=== PATIENT | male | born 1975 | race Caucasian/White ===

== ENCOUNTER 2017-12-23 09:07 | Outpatient (CLI) | payer MEDICARE, MEDICAID ==
--- NOTE | 2017-12-23 10:19 | PRG ---
DATE OF SERVICE: 12/23/2017 CHIEF COMPLAINT: Ulcer, right foot. HISTORY OF PRESENT ILLNESS: A 42-year-old male who presents to clinic today with a wound to his righ t foot. This has been present for about a month. He was previously seen in my [facility]. We started him on Triple Antibiotic ointment and bandage changes. He has been doing this daily since I last saw him. He thinks the wound started as a blister. Before that time, there was no treatment be fore I saw about 3 weeks ago in my clinic. PAST MEDICAL HISTORY: Hypertension, diabetes and bipolar disorder. PAST SURGICAL HISTORY: Unremarkable. MEDICATIONS: See list in the paper chart. ALLERGIES: No known drug allergies. SOCIAL HISTORY: Relates he does not use tobacco, but is a former smoker. No alcohol use. Occasiona l caffeine use. No drug use. FAMILY HISTORY: Father with a history of heart disease, diabetes, and cancer. Mother with history o f heart disease and cancer. REVIEW OF SYSTEMS: CONSTITUTIONAL: Denies nausea, vomiting, fevers or chills. INTEGUMENTARY: Relates skin ulcers and cracking of the skin. MUSCULOSKELETAL: Relates weakness in the limbs. ENDOCRINE: Relates diabetes. CARDIOVASCULAR: Relates swelling in the legs and the ankles, hypertension and circulatory disease. PHYSICAL EXAMINATION: VITAL SIGNS: Temperature 97.8, pulse 78, respirations 22, blood pressure 125/78. VASCULAR EXAM: Dorsalis pedis pulses palpable bilaterally and posterior tibial pulses are nonpalpabl e bilaterally. Cap refill time is immediate to the distal aspect of all toes. No edema present to b ilateral lower extremities. No varicosities present to bilateral lower extremities. NEUROLOGICAL: 10 gram monofilament sense in 0 locations on bilateral feet. Negative Tinel sign on t he tibial nerve. Deep tendon reflexes are intact. Bilateral Achilles tendon, negative Babinski sign . MUSCULOSKELETAL: Muscle strength is 5/5 for dorsiflexion, plantar flexion, inversion, eversion in bi lateral lower extremities. The patient has rectus foot type. Range of motion of the ankle and subta lar joint, first MPJ is full with no pain, no crepitation. NEUROLOGICAL: Ulceration to the right plantar fourth metatarsal head measures 0.5 cm x 0.3 cm x 0.3 cm of depth, has 100% granular wound base. There is a periwound hyperkeratosis. No periwound erythe ma, edema, or warmth, no drainage. Wound does not probe to bone. ASSESSMENT: 1. Non-pressure chronic ulceration to the right forefoot. 2. Diabetes with peripheral neuropathy. PLAN: 1. Full thickness debridement of subcutaneous tissue layer removing all nonviable tissue and biofilm from the wound base as well as the hyperkeratotic tissue surrounding wound bases. This was done wit h a dermal curet and 15 blade scalpel. 2. The patient will start with Promogran dressing changes to the forefoot with dry gauze dressing, s econdary dressing daily. He will follow up with me in 1 week.
== END 2017-12-23 09:08 | disposition home or self-care (01) ==
LOC: WCC 09:07
PROVIDERS: ATTEND Podiatrist Foot & Ankle Surgery
DX: E11.621 Type 2 diabetes mellitus with foot ulcer (principal); L97.519 Non-pressure chronic ulcer of other part of right foot with unspecified severity; E11.42 Type 2 diabetes mellitus with diabetic polyneuropathy
CPT/HCPCS: 11042; 97139; G0463; 99203

== ENCOUNTER 2017-12-30 10:41 | Outpatient (CLI) | payer MEDICARE, MEDICAID ==
--- NOTE | 2017-12-30 11:42 | PRG ---
DATE OF SERVICE: 12/30/2017 SUBJECTIVE: This is a 42-year-old male returns today for followup right plantar fourth metatarsal he ad ulceration. He has had no problems over the last week with doing Promogran, Band-Aid and Coban dr essing changes. Denies nausea, vomiting, fevers or chills. PHYSICAL EXAMINATION: Ulceration to the plantar right fourth metatarsal head measures 0.3 cm x 0.3 c m x 0.2 cm of depth. It is 100% granular wound base. Minimal serosanguineous drainage, no odor. It does not probe to bone. Periwound area is dry and with minimal hyperkeratotic buildup. There was a loose flap of skin, which on removal noted there is a second wound also under the 4th just medial to the first wound, which measures 1.0 cm x 0.3 cm x 0.1 cm. It is also a 100% granular wound base. N o periwound erythema, edema or warmth. Does not probe to deeper tissues or bone. ASSESSMENT: 1. Non-pressure chronic ulcerations x2 to the right foot. 2. Diabetes with peripheral neuropathy. PLAN: 1. Full thickness debridement of both wounds down to a bleeding granular wound base, removing all no nviable tissue and biofilm from the subcutaneous tissue layer with a 15 blade and dermal curette. Th e patient tolerated the procedure well. 2. We are going to continue with Promogran dressing changes to both wound sites with gauze and Coban secondary dressing. 3. The patient will follow up with me in 1 week.
== END 2017-12-30 10:42 | disposition home or self-care (01) ==
LOC: WCC 10:41
PROVIDERS: ATTEND Podiatrist Foot & Ankle Surgery
DX: E11.621 Type 2 diabetes mellitus with foot ulcer (principal); L97.919 Non-pressure chronic ulcer of unspecified part of right lower leg with unspecified severity; E11.42 Type 2 diabetes mellitus with diabetic polyneuropathy
CPT/HCPCS: 11042

== ENCOUNTER 2018-01-06 13:06 | Outpatient (CLI) | payer MEDICARE, MEDICAID ==
--- NOTE | 2018-01-06 11:41 | PRG ---
DATE OF SERVICE: 01/06/2018 SUBJECTIVE: A 42-year-old male returns today for followup right foot plantar ulceration. Denies any problems over the last week. He says he has been using Triple Antibiotic ointment and a Band-Aid. Denies nausea, vomiting, fevers, or chills. PHYSICAL EXAMINATION: ULCER: There is actually 2 ulcerations on the right plantar foot, the one sub third metatarsal head is measures 0.3 cm x 0.4 cm x 0.2 cm of depth, 100% granular tissue. The smaller of the 2 wounds und er the fourth metatarsal head measuring 0.3 cm x 0.2 cm x 0.2 cm of depth, has 100% granular tissue. No periwound erythema, edema, or warmth on either wound. Wounds do not probe to bone or tendon. ASSESSMENT: 1. Non-pressure chronic ulcerations x2 to the right plantar forefoot. 2. Diabetes with peripheral neuropathy. PLAN: 1. Full thickness debridement of both wounds removing all nonviable tissue biofilm and hyperkeratoti c rim utilizing dermal curet and 15 blade scalpel. The patient tolerated the procedure well. 2. Going to start him on Promogran dressing changes daily and we will follow up with the patient in 1 week.
== END 2018-01-06 13:07 | disposition home or self-care (01) ==
LOC: WCC 13:06
PROVIDERS: ATTEND Podiatrist Foot & Ankle Surgery
DX: E11.621 Type 2 diabetes mellitus with foot ulcer (principal); L97.419 Non-pressure chronic ulcer of right heel and midfoot with unspecified severity; E11.42 Type 2 diabetes mellitus with diabetic polyneuropathy
CPT/HCPCS: 97602

== ENCOUNTER 2018-01-13 10:56 | Outpatient (CLI) | payer MEDICARE, MEDICAID ==
[~2018-01-13 10:56] MED LIST: Sodium Chloride 0.9% 15 ML NEB ONE
--- NOTE | 2018-01-13 11:55 | PRG ---
DATE OF SERVICE: 01/13/2018 SUBJECTIVE: This is a 43-year-old male, returns today for followup of right plantar foot wound. The patient has been doing dressing changes as ordered. Denies any nausea, vomiting, fevers, or chills. No new complaints at this time. PHYSICAL EXAMINATION: Ulceration, right plantar sub-third metatarsal head, measuring 0.4 cm x 0.3 cm x 0.2 cm of depth, 100% granular wound base, does not probe to bone or tendon. No periwound erythem a, edema, or warmth. ASSESSMENT: 1. Non-pressure chronic ulceration to the right foot. 2. Diabetes with peripheral neuropathy. PLAN: 1. Full-thickness debridement of the subcutaneous tissue layers, removing all nonviable tissue and b iofilm from the wound base with dermal curette down to bleeding granular wound base. The patient helen erated the procedure well. 2. Going to continue with Promogran dressing changes on a daily basis. 3. The patient will follow up with me in 2 weeks or sooner should he have problems before that time.
== END 2018-01-13 10:57 | disposition home or self-care (01) ==
LOC: WCC 10:56
PROVIDERS: ATTEND Podiatrist Foot & Ankle Surgery
DX: E11.621 Type 2 diabetes mellitus with foot ulcer (principal); L97.519 Non-pressure chronic ulcer of other part of right foot with unspecified severity; E11.42 Type 2 diabetes mellitus with diabetic polyneuropathy
CPT/HCPCS: A4218

== ENCOUNTER 2018-02-03 10:50 | Outpatient (CLI) | payer MEDICARE, MEDICAID ==
--- NOTE | 2018-02-03 12:22 | PRG ---
DATE OF SERVICE: 02/03/2018 SUBJECTIVE: This is a 43-year-old male returns today for followup of right plantar foot ulcerations x2. Denies problems since last visit. He has been leaving them open to the air. He did not have a dressing on today when he came in. Denies nausea, vomiting, fevers or chills. PHYSICAL EXAMINATION: Ulcerations to the plantar right foot. There are 2 hyperkeratotic lesions on paring of these 2 lesions, there was no underlying ulcerations present. All wounds have healed. No sae-hyperkeratotic erythema, edema or warmth. ASSESSMENT: Non-pressure chronic ulceration to the right foot, healed. PLAN: 1. Discussed with the patient routine foot care as well as daily moisturizing lotion to the area and monitoring for recurrence of the wounds. 2. The patient will return should he have any problems.
== END 2018-02-03 10:51 | disposition home or self-care (01) ==
LOC: WCC 10:50
PROVIDERS: ATTEND Podiatrist Foot & Ankle Surgery
DX: L97.419 Non-pressure chronic ulcer of right heel and midfoot with unspecified severity (principal)
CPT/HCPCS: 99213; G0463